=== PATIENT | female | born 1970 | race Caucasian/White ===

== ENCOUNTER 2017-01-31 13:24 | Emergency (ER) | payer BC ==
[2017-01-31] MEDS ORDERED: Ketorolac Tromethamine 30 MG/ML VIAL ONE (16:18)
--- NOTE | 2017-01-31 16:59 | RAD ---
THREE VIEWS LEFT ANKLE: History: Left ankle pain. FINDINGS: AP, lateral, and oblique views obtained. The left ankle is unremarkable. No evidence of fractures, subluxations, or bony lesions seen. IMPRESSION: Normal three views left ankle. POS: [facility]
[2017-01-31] MEDS ORDERED: HYDROcodone/Acetaminophen 5/325 mg Tablet ONE (17:24)
== END 2017-01-31 17:37 | disposition home or self-care (01) ==
LOC: ERS 13:24
DX: S86.012A Strain of left Achilles tendon, initial encounter (principal); W01.0XXA Fall on same level from slipping, tripping and stumbling without subsequent striking against object, initial encounter
CPT/HCPCS: 29515; 96372; J1885